=== PATIENT | male | born 1985 | race Caucasian/White ===

== ENCOUNTER → 2016-08-16 | Outpatient (CLI) | payer BC ==
--- NOTE | 2016-08-16 10:14 | US ---
Testicular Sonography with Color and Spectral Doppler Clinical History: 31-year-old male with right testicular pain for 10 days. ICD 10 Diagnostic Code: N50.811. Technique: A linear 17 MHz transducer was used to sonographically evaluate each hemiscrotum. Color an d spectral Doppler are used. Compare study: None. Findings: Right Hemiscrotum: The testis is normal in size, shape, and position, and is homogeneous in echotextu re, measuring 4.6 x 2.4 x 3.4 cm. Intratesticular vascular flow is documented. The resistive index as sociated with an arteriole sampled is 0.41. There is a tiny right hydrocele. The epididymis is normal , with no abnormal thickening, mass, or hyperemia. There is no varicocele. Left Hemiscrotum: As on the contralateral side, the testis is normal in size, shape, and position, an d is homogeneous in echotexture, measuring 4.5 x 2.5 x 3.0 cm. Intratesticular vascular flow is docum ented, with a resistive index of 0.54. There is a small left hydrocele. There is no varicocele. The e pididymis is normal. Impression: 1. Normal sonographic appearance of each testis and epididymis. 2. Small bilateral hydroceles, left greater than right. A Call Requested test result notification was sent via the [employer] service, 10:11:46 AM, 08/16/2016, [employer] Message ID [id number].
== END ==
LOC: BMCIMAGING 09:29
PROVIDERS: ATTEND Nurse Practitioner Adult Health
DX: N50.811 Right testicular pain (principal); N43.3 Hydrocele, unspecified